=== PATIENT | female | born 1945 | race African-American/Black ===

== ENCOUNTER 2019-07-19 05:00 | Day surgery (SDC) | payer MEDICARE, BC ==
[2019-07-18 14:20] LABS: HEMATOCRIT 38.7 % (36.0-48.0); HEMOGLOBIN 13.1 g/dL (12-16); MCHC 33.9 g/dL (31.0-37.0); MCV 85.8 fL (80.0-100.0); MEAN PLATELET VOLUME 10.5 fL (7.4-10.4); RBC 4.51 10x6/uL (4.00-5.40); RDW 15.9 % (11.5-14.5); WBC 8.7 10x3/uL (4.8-10.8)
[2019-07-18 14:33] LABS: ANION GAP 14.5 mmol/L (8-16); CALCIUM 9.2 mg/dL (8.5-10.1); CARBON DIOXIDE 25.6 mmol/L (21.0-32.0); CREATININE - SERUM 1.4 mg/dL (0.6-1.3); POTASSIUM - SERUM 4.1 mmol/L (3.5-5.1)
[~2019-07-19] VITALS: Ht 167.6 cm; Wt 88.5 kg
[~2019-07-19 05:00] MED LIST: BAYER CHEWABLE81 MG PO; CYMBALTA60 MG PO; GLUCOTROL 5 MG T5 MG PO; JANUVIA100 MG PO; KLONOPIN0.5 MG PO; MYRBETRIQ50 MG PO; ZOLOFT100 MG PO; ZYLOPRIM100 MG PO; [UNRECOGNIZED DRUG - OTHER] PO
[2019-07-19 06:07] VITALS: BP 149/79; Ht 167.6 cm; Wt 88.5 kg
--- NOTE | 2019-08-02 10:07 | OP ---
PATIENT NAME: JALYN DELONG MEDICAL RECORD: [id number] :47 LOCATION:[facility] ADMISSION DATE: SURGEON: BLAKE SALINAS DPM DATE OF OPERATION: 07/19/2019 PREOPERATIVE DIAGNOSIS: Hallux abductovalgus, left foot. POSTOPERATIVE DIAGNOSIS: Hallux abductovalgus, left foot. PROCEDURE: Vaughn bunionectomy, left foot. ANESTHESIA: Local with general anesthesia. HEMOSTASIS: Left ankle tourniquet at 250 mmHg. PREOPERATIVE DETAILS: The patient was taken to the OR and placed on the operating table in a supine position. This was followed by induction of general anesthesia and infiltration of local anesthetic. Approximately 17 cc total of 1:1 mix of lidocaine and Marcaine plain around the first ray. The left extremity was then prepped and draped in usual aseptic technique followed by exsanguination and inflation of tourniquet. A 15 blade was used to create a 4-cm linear incision over the dorsal aspect of the first metatarsal extending to the base of proximal phalanx of the hallux. Incision was deepened down through subcutaneous tissue to the first MPJ where an inverted L capsulotomy was performed. The medial capsular flap was reflected and the head of the first metatarsal was delivered. A sagittal saw was used to resect the medial eminence. Attention was then directed to the first interspace where a lateral release was performed. A sagittal saw was then used to the medial aspect of the head of the first metatarsal to create a V-cut. The capital fragment was translocated laterally and fixated with a 0.062 inch K-wire. The medial redundant shelf was resected with a bone saw. The wound was flushed. The capsule was repaired with 2-0 Vicryl, the subcutaneous tissue with 4-0 Rapide, and the skin was closed with 4-0 Rapide in a subcuticular technique followed by Dermabond. Adaptic, 4 x 4 and conform was used to dress the wound followed by Coban. Tourniquet was deflated. POSTOPERATIVE DETAILS: The patient tolerated the procedure well and left the OR with vital signs stable and vascular status at preoperative levels. The patient was transported to recovery per anesthesia in stable condition. TRANSINT:[id number] Voice Confirmation ID: [id number] DOCUMENT ID: [id number] HUGENTOBLER, LOZANO DPM at 1007 CC: [id number] DICTATION DATE: 07/19/19 0746 OPERATIONS ACCOUNTANT: 07/19/19 1116 [facility] [place] 07/19/19 [id number] [place] [address]
== END 2019-07-19 09:35 | disposition home or self-care (01) ==
LOC: D.OPS 05:00 → D.PAN 08:00 → D.OPS 08:30
PROVIDERS: Anesthesiology; ATTEND Podiatrist
DX: M20.12 Hallux valgus (acquired), left foot (principal)